=== PATIENT | female | born 1985 | race Caucasian/White ===

== ENCOUNTER 2020-10-09 04:25 | Day surgery (SDC) | payer BC ==
[2020-10-04 16:46] VITALS: BMI 26.2
[2020-10-09] MEDS ORDERED: BUPIVACAINE 0.25% /EPI 1:200,000 10 ML VIAL ONE (11:36)
[2020-10-09] MEDS ORDERED: ROCURONIUM BROMIDE 50 MG/5 ML SYRINGE ONE (11:37)
[2020-10-09] MEDS ORDERED: NEOSTIGMINE METHYLSULFATE 0.5 MG/ML - 10 ML MDV ONE (11:37)
[2020-10-09] MEDS ORDERED: MIDAZOLAM HCL 2 MG/2 ML SINGLE DOSE VIAL ONE (11:37)
[2020-10-09] MEDS ORDERED: LIDOCAINE HCL 2% JELLY (5 ML/TUBE) ONE (11:45)
[2020-10-09] MEDS ORDERED: ceFAZolin 2 GRAM PREMIX BAG IVPB ONE (11:56)
[2020-10-09] MEDS ORDERED: GLYCOPYRROLATE 0.2 MG/1 ML VIAL ONE (12:01)
[2020-10-09] MEDS ORDERED: KETOROLAC TROMETHAMINE 30 MG/1 ML VIAL ONE (12:01)
[2020-10-09] MEDS ORDERED: BUPIVACAINE 0.25% /EPI 1:200,000 10 ML VIAL NR ONE (12:20)
[2020-10-09] MEDS ORDERED: ACETAMINOPHEN 500 MG TABLET (FP) PO PRN (12:45)
[2020-10-09] MEDS ORDERED: ONDANSETRON 4 MG/2 ML VIAL IVPUSH PRN (12:45)
[2020-10-09] MEDS ORDERED: ACETAMINOPHEN INJECTION 100 ML IVPB ONE (13:48)
[2020-10-09 15:55] VITALS: BP 119/79; PULSE 60; TEMP 98
== END 2020-10-09 15:45 | disposition home or self-care (01) ==
LOC: JASU-SURG 04:25
PROVIDERS: ATTEND Specialist
PROC: 0UB74ZZ Excision of Bilateral Fallopian Tubes, Percutaneous Endoscopic Approach (ICD-10-PCS; principal; 2020-10-09 10:00)
DX: Z30.2 Encounter for sterilization (principal)
CPT/HCPCS: 84703; 88302-TC; 94760; J0131